=== PATIENT | female | born 1955 | race Caucasian/White ===

== ENCOUNTER 2019-10-27 13:40 | Outpatient (CLI) | payer OTHER | END 2019-10-27 14:00 | disposition home or self-care (01) | LOC: NUCLEAR 13:40 | DX: C73 Malignant neoplasm of thyroid gland (principal); E89.0 Postprocedural hypothyroidism | CPT/HCPCS: 79005; A9517 ==

== ENCOUNTER 2019-10-31 14:17 | Outpatient (CLI) | payer OTHER | END 2019-10-31 14:36 | disposition home or self-care (01) | LOC: NUCLEAR 14:17 | DX: C73 Malignant neoplasm of thyroid gland (principal); E89.0 Postprocedural hypothyroidism ==

== ENCOUNTER 2021-06-25 13:38 | Outpatient (CLI) | payer OTHER | END 2021-06-25 13:44 | disposition home or self-care (01) | LOC: NUCLEAR 13:38 | PROVIDERS: ATTEND Internal Medicine Sports Medicine | DX: C73 Malignant neoplasm of thyroid gland (principal); E89.0 Postprocedural hypothyroidism | CPT/HCPCS: 78018; 78020; A9528 ==

== ENCOUNTER 2024-01-07 07:17 | Outpatient (CLI) | payer OTHER | END 2024-01-07 07:20 | disposition home or self-care (01) | LOC: NUCLEAR 07:17 | PROVIDERS: ATTEND Internal Medicine | DX: C73 Malignant neoplasm of thyroid gland (principal); E83.52 Hypercalcemia; R05.8 Other specified cough; R73.03 Prediabetes; Z71.89 Other specified counseling; I25.2 Old myocardial infarction; R76.8 Other specified abnormal immunological findings in serum; Z68.34 Body mass index [BMI] 34.0-34.9, adult; I70.0 Atherosclerosis of aorta | CPT/HCPCS: 78072; A9500 ==